=== PATIENT | female | born 1940 | race Two or more races ===

== ENCOUNTER 2018-09-30 01:03 | Inpatient (IN) | payer MEDICARE, OTHER ==
[2018-09-30] VITALS (31 sets, daily range): BP systolic 94–141; BP diastolic 41–92
[~2018-09-30] VITALS: Ht 154.9 cm; Wt 73.5 kg
--- NOTE | 2018-09-30 01:10 | NUR ---
PT BIBRA FROM HOME C/O THROAT PAIN. PT DENIES CHEST PAIN, SOB, HEADACHE, DIZZINES. NOTED TACHYCARDIA, MD AWARE. PT AAOX4. RESPIRATIONS EVEN AND UNLABORED. SKIN WARM AND INTACT. NO ACUTE DISTRESS NOTED AT THIS TIME. PLACED ON CONTINUOUS HEART NURSE, WILL CONTINUE TO MONITOR
[2018-09-30] MEDS ORDERED: NITROGLYCERIN PACKET 1 GM PACKET ONE (01:21)
[2018-09-30] MEDS ORDERED: ASPIRIN 81 MG TAB.CHEW ONE (01:21)
[2018-09-30] MEDS ORDERED: AMIODARONE 150 MG/3 ML VIAL IV ONE ×2 (01:27→01:29)
--- NOTE | 2018-09-30 01:28 | NUR ---
IV INITIATED RIGHT HAND 18G. LABS DRAWN FROM SITE. ARCHITECTURAL WOOD MODEL MAKER AT BEDSIDE FOR COLLECTION. IV INTACT AND PATENT, PLACED ON SALINE LOCK
[2018-09-30] MEDS ORDERED: AMIODARONE 150 MG in IV D5W 100 ML IV ONE (01:30)
[2018-09-30] MEDS ORDERED: AMIODARONE 900 MG in IV D5W 500 ML IV ONE (01:30)
[2018-09-30] MEDS ORDERED: NITROGLYCERIN PACKET 1 GM PACKET TD ONE (01:30)
[2018-09-30] MEDS ORDERED: ASPIRIN 81 MG TAB.CHEW PO ONE (01:30)
[2018-09-30 01:35] LABS: BASOPHILS % (AUTO) 0.4 % (0.0-2.0); EOSINOPHILS % (AUTO) 1.2 % (0.0-6.0); HEMATOCRIT 43 % (33-45); HEMOGLOBIN 14.3 g/dL (11.5-14.8); LYMPHOCYTES # (AUTO) 2.5 /CMM (0.8-4.8); LYMPHOCYTES % (AUTO) 31.5 % (20.0-44.0); MEAN CORPUSCULAR HGB CONC 34 g/dl (31.0-36.0); MEAN CORPUSCULAR VOLUME 85 fL (82-100); MONOCYTES # (AUTO) 0.8 /CMM (0.1-1.30); MONOCYTES % (AUTO) 9.7 % (2.0-12.0); NEUTROPHILS # (AUTO) 4.5 /CMM (1.8-8.9); NEUTROPHILS % (AUTO) 57.2 % (43.0-81.0); PLATELET COUNT (AUTO) 222 /CMM (150-450); WHITE BLOOD COUNT (AUTO) 7.8 K/uL (4.3-11.0)
[2018-09-30 01:46] LABS: CALCIUM, SERUM 9.3 mg/dL (8.5-10.1); CARBON DIOXIDE 23 mmol/L (21-32); CHLORIDE 109 mmol/L (98-107); CREATININE 0.7 mg/dL (0.6-1.3); GLUCOSE 116 mg/dL (74-106); POTASSIUM 4.1 mmol/L (3.5-5.1); SODIUM SERUM 143 mmol/L (136-145); UREA NITROGEN, BLOOD 24 mg/dL (7-18)
[2018-09-30 01:58] LABS: ALANINE AMINOTRANSFERASE 22 U/L (12-78); ALBUMIN 3.4 g/dL (3.4-5.0); ALKALINE PHOSPHATASE 84 U/L (46-116); ASPARTATE AMINOTRANSFERASE 23 U/L (15-37); B-TYPE NATRIURETIC PEPTIDE 146 PG/ML (0-125); BILIRUBIN,DIRECT 0.1 mg/dL (0.0-0.2); BILIRUBIN,TOTAL 0.2 mg/dL (0.2-1.0); TOTAL PROTEIN, SERUM 7.2 g/dL (6.4-8.2)
[2018-09-30 02:13] LABS: D-DIMER 0.57 mg/L(FEU (0.17-0.50)
--- NOTE | 2018-09-30 02:18 | NUR ---
ADMIT [facility]FLOW 255 DX: PRINCE THOMPSON AUTOMOBILE CLUB TRAVEL COUNSELOR
--- NOTE | 2018-09-30 02:35 | NUR ---
GAVE REPORT TO CHARLES MCLEAN FOR MOIZ
[2018-09-30] MEDS ORDERED: SENN-168 PO (02:37)
[2018-09-30] MEDS ORDERED: ESCI10TA PO (02:37)
[2018-09-30] MEDS ORDERED: LOSA1TAB39 PO (02:37)
[2018-09-30] MEDS ORDERED: ESOM40CA PO (02:37)
[2018-09-30] MEDS ORDERED: AMLO5TAB9 PO (02:37)
[2018-09-30] MEDS ORDERED: EZET10TA14 PO (02:37)
[2018-09-30] MEDS ORDERED: DONE10TA44 PO (02:37)
[2018-09-30] MEDS ORDERED: MEMA10TA PO (02:37)
[2018-09-30] MEDS ORDERED: CLON0.5T12 PO (02:40)
[2018-09-30] MEDS ORDERED: TICA90TA PO (02:40)
[2018-09-30] MEDS ORDERED: ACET-2605 PO (02:40)
[2018-09-30] MEDS ORDERED: CHOL20004 PO (02:40)
[2018-09-30] MEDS ORDERED: IOHEXOL-350 100 ML VIAL IV ONE (02:45)
[2018-09-30] MEDS ORDERED: IV NS 0.9% 250 ML IV ONE (02:46)
--- NOTE | 2018-09-30 03:20 | NUR ---
HANDKERCHIEF SAMPLE CLERK: RECEIVED A/O X3 PT FOR TD OVERFLOW WT DX OF A. FIB WT RVR. ON 2L 02 VIA NC WT NO ACUTE DISTRESS. DENIES CHEST PAIN OR DISCOMFORT. RT. HAND IV SITE INFUSING AMIODARONE DRIP AT 1MG/MIN STARTED FROM ER AND TO CHANGE RATE TO 0.5MG/MIN AT 0800. UNCONTROLLED A. FIB WT HR IN THE 120s. NO S/S OF IV INFILTRATION. SKIN IS INTACT. PT IS AMBULATORY AND ABLE TO VOID IN THE TOILET. HOB AT 45 DEGREES. SAFETY PRECAUTION NOTED. CALL LIGHT KEPT WITHIN REACH. WILL CONTINUE TO MONITOR.
--- NOTE | 2018-09-30 03:33 | NUR ---
TRANSFERRED PT TO [facility]FLOW 255 PER ACLS PROTOCOL
[2018-09-30] MEDS ORDERED: AMIODARONE 900 MG in IV D5W 482 ML IV PRN (04:00)
--- NOTE | 2018-09-30 04:26 | NUR ---
SLINGER SEQUINS: NOTIFIED MILES PAGE THAT PT CONVERTED TO ST WT BBB FROM A. FIB CONTROLLED AND HAD EPISODE OF SB WT LOWEST HR AT 49 THEN BACK TO 59-60. ASKED DNP IF WANT TO CONTINUE DRIP AND SAID TO CONTINUE DRIP FOR NOW.
[2018-09-30] MEDS ORDERED: Z GUARD REMEDY 2 OZ OINT TP PRN (04:30)
[2018-09-30] MEDS ORDERED: HYDROCODONE/APAP 5/325MG 1 EACH TABLET PO PRN (04:30)
[2018-09-30] MEDS ORDERED: ACETAMINOPHEN 325 MG TABLET PO PRN (04:30)
[2018-09-30] MEDS ORDERED: MORPHINE SULFATE INJ 2 MG/ML DISP.SYRIN IV PRN (04:30)
[2018-09-30] MEDS ORDERED: ONDANSETRON HCL/PF 4 MG/2 ML VIAL IVP PRN (04:30)
[2018-09-30] MEDS ORDERED: ZOLPIDEM TARTRATE 5 MG TABLET PO PRN (04:30)
[2018-09-30] MEDS ORDERED: MAG HYDROX/AL HYDROX/SIMETH 30 ML UDC PO PRN (04:30)
[2018-09-30] MEDS ORDERED: NITROGLYCERIN 0.4 MG/TAB BOTTLE SL PRN (04:30)
[2018-09-30] MEDS ORDERED: MAGNESIUM HYDROXIDE 30 ML UDC PO PRN (04:30)
--- NOTE | 2018-09-30 05:00 | NUR ---
BOOKING OFFICER: NOTIFIED RA PAGE THAT PT HAS BEEN SB WT HR IN THE HIGH 50s ON ROLLER EMBOSSER FOR 15 MINS. DNP SAID TO CONTINUE TO MONITOR FOR NOW AND NOTIFY HIM IF HR IS IN THE 40s AND SUSTAINED. PT REMAINED ALERT AND ABLE TO MAKE NEEDS KNOWN. WILL CONTINUE TO MONITOR.
--- NOTE | 2018-09-30 05:27 | NUR ---
SUPERVISOR GENERAL: ANNE. DRIP HELD OF THIS TIME DUE TO SUSTAINED HR IN THE LOW 50s. MILES PAGE MADE AWARE AND AGREED. WILL CONTINUE TO MONITOR.
--- NOTE | 2018-09-30 06:30 | NUR ---
CHEMICAL PLANT OPERATOR: REMAINED ALERT AND AWAKE. ABLE TO MAKE NEEDS KNOWN. SB ON NEONATAL PEDIATRIC NURSE WT HR IN THE HIGH 40s TO LOW 50s. NO ACUTE DISTRESS. NO C/O PAIN OR EVIDENCE OF DISCOMFORT. SAFETY PRECAUTION NOTED AT ALL TIMES. CALL LIGHT KEPT WITHIN REACH.
--- NOTE | 2018-09-30 07:33 | NUR ---
SUPERVISOR PAPER MACHINE: pt.is A/Ox3, no any pain, no SOB, SB now 49-55, Amiodarone gtt is off since 05.00, O2sat.over 96% on 2L n/c, voided x2, able to ambulate, was in room/updated, see new orders
[2018-09-30] MEDS ORDERED: FUROSEMIDE 20 MG/2 ML VIAL IV ONE (08:00)
[2018-09-30] MEDS: clonazePAM 0.5 MG TABLET PO SCH ×4 (09:00→16:58)
[2018-09-30] MEDS: HYDROCHLOROTHIAZIDE 25 MG TABLET PO SCH ×2 (09:00→09:51)
[2018-09-30] MEDS: LOSARTAN POTASSIUM 50 MG TABLET PO SCH ×2 (09:00→09:52)
[2018-09-30] MEDS ORDERED: PANTOPRAZOLE 40 MG VIAL IV SCH (09:00)
[2018-09-30] MEDS: AMLODIPINE BESYLATE 5 MG TABLET PO SCH ×2 (09:00→16:59)
[2018-09-30] MEDS: ESCITALOPRAM OXALATE (10 MG) 10 MG TABLET PO SCH ×2 (09:00→09:47)
[2018-09-30] MEDS ORDERED: Medication Not On Formulary EA (Losartan/Hydrochlorothiazide (Losartan-Hctz 100-25 Mg Ta PO SCH (09:00)
[2018-09-30] MEDS ORDERED: MEMANTINE HCL 7 MG PO SCH (09:00)
--- NOTE | 2018-09-30 09:00 | NUR ---
PROPERTY CLAIM REP: SR/SB now 56-62, SBP 110-120, O2sat. over 94%, is in room, updated with all above, ok to give all BP meds with current VS, ok to transfer to tele, start cardiac diet, resume home meds: Levothyroxine 75 mcg PO am daily(pt.confirmed dose, frequency with Fijian translation)
[2018-09-30] MEDS: HEPARIN SODIUM, PORCINE 5000 UNITS/1 ML VIAL SQ SCH ×2 (09:47→21:06)
[2018-09-30] MEDS: EZETIMIBE 10 MG TABLET PO SCH (09:47)
[2018-09-30] MEDS: MEMANTINE HCL 5 MG TABLET PO SCH (09:50)
--- NOTE | 2018-09-30 10:00 | NUR ---
BUILDING SERVICES ENGINEER: pt.is refused for Cozaar, Hctz, Amlodipine, Escitalopram, Clonazepam for now, said: give me Clonazepam, Lexapro for PM time, placed marked meds in cassette/will notify next nurse. Pt.family is in room/updated re POC.
[2018-09-30] MEDS: SENNOSIDES 8.6 MG TABLET PO SCH ×2 (10:04→16:59)
[2018-09-30] MEDS: TICAGRELOR 90 MG TABLET PO SCH ×2 (10:05→16:58)
[2018-09-30] MEDS: LEVOTHYROXINE SODIUM 75 MCG TABLET PO SCH (12:11)
--- NOTE | 2018-09-30 17:51 | NUR ---
ARTIST WOODBLOCK: pt.is in progress, feels better, rest, ready to go to Tele, SR/SB lowest 56, SBP over 100, O2sat. over 96% on RA, refused to take Aricept, said: will take 17.00 Clonazepam dose after 20.00/will notify next nurse
[2018-09-30] MEDS ORDERED: DONEPEZIL 5 MG TABLET PO SCH (18:00)
--- NOTE | 2018-09-30 19:30 | NUR ---
MARKET RESEARCH CONSULTANT: RECEIVED PT ALERT AND AWAKE, WATCHING TV. ABLE TO MAKE NEEDS KNOWN. ON ROOM AIR WT NO ACUTE DISTRESS. NO C/O PAIN OR EVIDENCE OF DISCOMFORT. SR ON MOLYBDENUM STEAMER OPERATOR. AFEBRILE. BP WNL. RT AC IV SITE INTACT, PATENT AND SALINE LOCKED. SAFETY PRECAUTION NOTED. BED IN LOCKED AND LOW POSITION WT BILAT. UPPER SR UP. CALL LIGHT KEPT WITHIN REACH. WILL CONTINUE TO MONITOR.
--- NOTE | 2018-09-30 21:00 | NUR ---
RELEASE OF INFORMATION SPECIALIST: REPORT GIVEN TO VINAY VAZQUEZ. PT WALKED TO RESTROOM VOIDED AND HAD MODERATE AMT. OF BOWEL MOVEMENT. MADE AWARE OF PT TRANSFER TO TELE AND VERBALIZED UNDERSTANDING. ALSO ENDORSED TO GEORGE THAT PT WILL TAKE THE CLONAZEPAM ENDORSED BY DAY SHIFT RN AT 10 PM.
--- NOTE | 2018-09-30 21:20 | NUR ---
PARTNER: PT TRANSFERRED TO TELE FLOOR & ENDORSED CLONAZEPAM AND OTHER MEDS TO VINAY SCHMIDT AND GEORGE (CHARGE NURSE). REMAINED IN STABLE CONDITION WT NO ACUTE DISTRESS. ALL NEEDS MET. LEFT A MSG TO JAVON (SON).
--- NOTE | 2018-09-30 21:40 | NUR ---
TELE/RN RECEIVE PATIENT FROM ICU VIA BED. PATIENT IS AWAKE, ALERT, ORIENTED, COMFORTABLE, NO C/O PAIN, NO DISTRESS NOTED, TAUGHT THE USE OF CALL LIGHT AND PLACED IT WITHIN REACH. WILL MONITOR.
--- NOTE | 2018-09-30 23:20 | NUR ---
MS/RN CLONAZEPAM 0.5 MG PO WAS GIVEN ENDORSED BY THE MOTORCYLES FINAL INSPECTOR PER PATIENT'S REQUEST.
[2018-10-01] VITALS: BP 125/69
--- NOTE | 2018-10-01 00:46 | NUR ---
TELE/RN PER PATIENT SHE CAN NOT SLEEP AND ASKING FOR ANOTHER CLONAZEPAM. INFORMED THE PATIENT THAT THERE IS NO ORDER FOR CLONAZEPAM PRN, OFFERED AMBIEN BUT REFUSED. PATIENT CALLED SON, SPOKE TO THE SON, SON ASKED ME TO CALL CALL THE DOCTOR FOR ANOTHER DOSE OF CLONAZEPAM. PLACED A CALL TO [facility], LEFT MESSAGE.
--- NOTE | 2018-10-01 01:09 | NUR ---
MS/RN CAMILO RUANO DNP, CALLED INFORMED HIM ABOUT THE CONCERN OF THE PATIENT. PER DR. PAGE, HE WILL ENTER ORDER.
[2018-10-01] MEDS ORDERED: ALPRAZOLAM 0.25 MG TABLET PO ONE (01:30)
--- NOTE | 2018-10-01 02:07 | NUR ---
TELE/RN DR. CAMILO RUANO ORDERED XANAX 0.25 MG PO BUT THE PATIENT REFUSED. PLACED A CALL TO [facility], LEFT MESSAGE.
--- NOTE | 2018-10-01 02:27 | NUR ---
TELE/RN CAMILO RUANO DNP, CALLED BACK, INFORMED HIM ABOUT PATIENT'S REFUSAL OF XANAX. PER DR. PAGE, HE WILL ENTER ORDER.
[2018-10-01] MEDS ORDERED: clonazePAM 0.5 MG TABLET PO ONE (02:30)
--- NOTE | 2018-10-01 02:45 | NUR ---
MS/RN PATIENT ALSO REFUSED THE CLONAZEPAM 0.5 MG PO, PER PATIENT IT DOES NOT LOOK THE SAME CLONAZEPAM SHE TAKES AT HOME. ASK DRU, JACQUELINE WARREN, PREFLIGHT INSPECTOR MYSELF AND CHARGE NURSE NARESH EXPLAIN ABOUT THE MEDICATION, BUT PATIENT STILL REFUSED. MED WAS WASTED IN THE OMNICEL.
[2018-10-01 04:00] VITALS: BP 115/68
--- NOTE | 2018-10-01 04:00 | NUR ---
MS/RN PATIENT IS SLEEPING AT THIS TIME, AROUSABLE, APPEAR COMFORTABLE, NO SIGNS OF DISTRESS NOTED, CALL LIGHT IN REACH. WILL CONTINUE TO MONITOR.
[2018-10-01 07:07] LABS: BASOPHILS % (AUTO) 0.5 % (0.0-2.0); EOSINOPHILS % (AUTO) 1.2 % (0.0-6.0); HEMATOCRIT 43 % (33-45); HEMOGLOBIN 14.1 g/dL (11.5-14.8); LYMPHOCYTES # (AUTO) 2.1 /CMM (0.8-4.8); LYMPHOCYTES % (AUTO) 30.2 % (20.0-44.0); MEAN CORPUSCULAR HGB CONC 33 g/dl (31.0-36.0); MEAN CORPUSCULAR VOLUME 85 fL (82-100); MONOCYTES # (AUTO) 0.7 /CMM (0.1-1.30); MONOCYTES % (AUTO) 9.7 % (2.0-12.0); NEUTROPHILS % (AUTO) 58.4 % (43.0-81.0); PLATELET COUNT (AUTO) 217 /CMM (150-450); RED BLOOD CELL COUNT(AUTO) 5.03 MIL/uL (4.0-5.2); WHITE BLOOD COUNT (AUTO) 6.8 K/uL (4.3-11.0)
--- NOTE | 2018-10-01 07:10 | NUR ---
PT AWAKE A/O X4 , [place] SPEAKING ONLY. DENIES CHEST PAIN OR ANY DISCOMFORT AT THIS TIME , ABLE TO AMBULATE. SAFETY MEASURES OBSERVED, WILL CONTINUE TO MONITOR
[2018-10-01 07:30] LABS: CALCIUM, SERUM 9.5 mg/dL (8.5-10.1); CARBON DIOXIDE 25 mmol/L (21-32); CHLORIDE 107 mmol/L (98-107); CHOLESTEROL 260 mg/dL (<200); CREATININE 0.8 mg/dL (0.6-1.3); GLUCOSE 98 mg/dL (74-106); HDL CHOLESTEROL 66 mg/dL (40-60); LDL 174 mg/dL (0-99); MAGNESIUM 2.1 mg/dL (1.8-2.4); PHOSPHORUS 5.1 mg/dL (2.5-4.9); POTASSIUM 4.2 mmol/L (3.5-5.1); SODIUM SERUM 144 mmol/L (136-145); TRIGLYCERIDES 111 mg/dL (30-150); UREA NITROGEN, BLOOD 28 mg/dL (7-18)
[2018-10-01 08:00] VITALS: BP 137/70
[2018-10-01] MEDS: SENNOSIDES 8.6 MG TABLET PO SCH (08:11)
[2018-10-01] MEDS: LOSARTAN POTASSIUM 50 MG TABLET PO SCH (08:12)
[2018-10-01] MEDS: MEMANTINE HCL 5 MG TABLET PO SCH (08:12)
[2018-10-01] MEDS: ESCITALOPRAM OXALATE (10 MG) 10 MG TABLET PO SCH (08:13)
[2018-10-01] MEDS: LEVOTHYROXINE SODIUM 75 MCG TABLET PO SCH (08:13)
[2018-10-01] MEDS: EZETIMIBE 10 MG TABLET PO SCH (08:14)
[2018-10-01] MEDS: HYDROCHLOROTHIAZIDE 25 MG TABLET PO SCH (08:15)
[2018-10-01] MEDS: clonazePAM 0.5 MG TABLET PO SCH (08:16)
[2018-10-01 09:00] VITALS: BP 138/74
[2018-10-01] MEDS: HEPARIN SODIUM, PORCINE 5000 UNITS/1 ML VIAL SQ SCH (09:00)
[2018-10-01] MEDS ORDERED: ASPIRIN EC 81 MG TABLET.DR PO SCH (09:00)
[2018-10-01] MEDS: AMLODIPINE BESYLATE 5 MG TABLET PO SCH (09:00)
[2018-10-01] MEDS: TICAGRELOR 90 MG TABLET PO SCH (09:00)
--- NOTE | 2018-10-01 13:00 | NUR ---
PT CLEARED FOR D/C TO HOME BY . PATIENT ALERT AND ORIENTED X4, NO COMPLAIN OF PAIN , CHEST PAIN OR DISTRESS. VS ARE STABLE AND WITHIN NORMAL RANGE. PRESCRIPTION GIVEN TO PATIENT, D/C INSTRUCTIONS PROVIDED. IV LINE REMOVED, WRIST BANDS REMOVED. ALL BELONGINGS WITH PATIENT AND VALUABLE LIST SIGHED WELL D/C INSTRUCTIONS. PT TRANSFERRED SAFELY TO A CAR VIA WHEELCHAIR.
[2018-10-02] MEDS ORDERED: ERGOCALCIFEROL (VITAMIN D 2) 50,000 UNIT CAPSULE PO SCH (09:00)
== END 2018-10-01 13:13 | disposition home or self-care (01) | DRG 308 ==
LOC: ER 01:08 → ICU 02:38 → TELE 21:14 → MED 10-01 08:49
PROVIDERS: ADMIT Internal Medicine; ATTEND Internal Medicine
DX: I48.91 Unspecified atrial fibrillation (principal); I50.31 Acute diastolic (congestive) heart failure; D68.59 Other primary thrombophilia; I11.0 Hypertensive heart disease with heart failure; I25.10 Atherosclerotic heart disease of native coronary artery without angina pectoris; F03.90 Unspecified dementia, unspecified severity, without behavioral disturbance, psychotic disturbance, mood disturbance, and anxiety; Z95.5 Presence of coronary angioplasty implant and graft; E03.9 Hypothyroidism, unspecified; Z79.02 Long term (current) use of antithrombotics/antiplatelets
CPT/HCPCS: 36415; 71045-TC; 80048-TC; 80061-TC; 80076-TC; 83735-TC; 83880; 84100-TC; 84443-TC; 84484-TC; 85025-TC; 85378-TC; 85730-TC; 87081-TC; 93307-TC; G0378; J0282; J1644; J1940; J7040; J7050; J7060; Q9967